=== PATIENT | female | born 1965 | race African-American/Black ===

== ENCOUNTER 2019-11-26 09:58 | Emergency (ER) | payer OTHER ==
[~2019-11-26] VITALS: Ht 162.6 cm; Wt 98.7 kg
[2019-11-26] MEDS ORDERED: DULO20CA30 PO (10:25)
[2019-11-26] MEDS ORDERED: MONT4GRA2 PO (10:25)
[2019-11-26] MEDS ORDERED: METO25 PO (10:25)
[2019-11-26] MEDS ORDERED: OMEP10 PO (10:25)
[2019-11-26] MEDS ORDERED: MECLIZINE HCL 25 MG TABLET PO ONE (11:45)
[2019-11-26] MEDS ORDERED: SODIUM CHLORIDE 0.9% 1,000 ML IV ONE (11:45)
[2019-11-26] MEDS ORDERED: SODIUM CHLORIDE 0.65% 44 ML NASAL SPRAY NASAL ONE (11:45)
[2019-11-26] MEDS ORDERED: VENL-67 PO (11:49)
[2019-11-26] MEDS ORDERED: DULO60CA44 PO (11:49)
[2019-11-26] MEDS ORDERED: MONT10TA21 PO (11:49)
[2019-11-26 12:14] LABS: ABG A-A DIFF O2 28.1 mmHg (10-20.0); ABG BASE EXCESS 0.9 mmol/L (-2.0-3.0); ABG CARBOXYHEMOGLOBIN 3.3 % (0.0-1.5); ABG HCO3 25.4 mmol/L (22.0-26.0); ABG METHEMOGLOBIN 0.1 % (0.0-1.5); ABG OXYGEN SATURATION 96.3 % (95.0-98.0); SOURCE, BLOOD GAS ARTERIAL; TEMPERATURE, FAHRENHEIT, BG 97.9 FAHREN (96.0-98.6)
[2019-11-26 12:15] LABS: ABG PCO2 38 mmHg (35-45); ABG PH 7.439 (7.35-7.450); SITE, BLOOD GAS RT RADIAL
[2019-11-26 12:16] LABS: ABG OXYGEN CONTENT 18.3 mL/dL (15.0-23.0); O2 DEVICE,BLOOD GAS ROOM AIR (ROOM AIR); PO2, ARTERIAL BG 79.4 mmHg (84.0-92.0)
[2019-11-26 13:03] LABS: BASOPHILS % (AUTO) 0.6 % (0.0-2.0); EOSINOPHILS % (AUTO) 0.4 % (1.0-6.0); HEMATOCRIT 41.7 % (36-46); HEMOGLOBIN 13.8 g/dL (12.0-16.0); LYMPHOCYTES # (AUTO) 1.9 K/uL (1.0-4.8); LYMPHOCYTES % (AUTO) 19.6 % (22.0-44.0); MEAN CORPUSCULAR HEMOGLOBIN 28.6 pg (26.0-34.0); MEAN CORPUSCULAR HGB CONC 33.1 G/dL (31.0-37.0); MEAN CORPUSCULAR VOLUME 86 fL (80-100); MONOCYTES # (AUTO) 0.6 K/uL (0.1-1.0); MONOCYTES % (AUTO) 5.8 % (2.0-9.0); NEUTROPHILS # (AUTO) 7.2 K/uL (1.8-7.7); NEUTROPHILS % (AUTO) 73.6 % (40.0-70.0); PLATELET COUNT (AUTO) 263 K/uL (150-450); RED BLOOD CELL COUNT(AUTO) 4.83 MIL/uL (4.00-5.20); RED CELL DISTRIBUTION WIDTH 13.8 % (11.5-14.5)
[2019-11-26 13:11] LABS: ANION GAP 4 mmol/L (8-16); CARBON DIOXIDE 28 mmol/L (22-29); CHLORIDE 106 mmol/L (98-107); CREATININE 0.98 mg/dL (0.60-1.30); GLUCOSE,RANDOM 93 mg/dL (70-110); POTASSIUM 4.1 mmol/L (3.5-5.1); SODIUM SERUM 138 mmol/L (136-145); UREA NITROGEN, BLOOD 12 mg/dL (7-18)
[2019-11-26 13:12] LABS: CALCIUM, TOTAL 8.7 mg/dL (8.8-10.5); GLOMERULAR FILTR. RATE CALC > 60 mL/min (>60)
[2019-11-26 13:17] LABS: PROTHROMBIN TIME 10.3 SEC (9.4-11.6)
[2019-11-26 13:37] LABS: ALANINE AMINOTRANSFERASE 15 U/L (12-78); ALBUMIN 3.4 g/dL (3.4-5.0); ALKALINE PHOSPHATASE 107 U/L (46-116); ASPARTATE AMINOTRANSFERASE 13 U/L (15-37); BILIRUBIN,TOTAL 0.6 mg/dL (0.1-1.0); CREATINE KINASE, TOTAL ONLY 101 U/L (26-192); LIPASE 108 U/L (73-393)
[2019-11-26 13:39] LABS: B-TYPE NATRIURETIC PEPTIDE 28 pg/mL (0-100)
[2019-11-26 13:45] VITALS: BP 118/86
== END 2019-11-26 14:26 | disposition home or self-care (01) ==
LOC: EMS 09:59
DX: R42 Dizziness and giddiness (principal); R53.81 Other malaise; R11.10 Vomiting, unspecified; J43.9 Emphysema, unspecified; I10 Essential (primary) hypertension; F17.210 Nicotine dependence, cigarettes, uncomplicated; Z79.899 Other long term (current) drug therapy; Z88.2 Allergy status to sulfonamides
CPT/HCPCS: 36600; 70450; 71045; 80053; 82550; 82803; 82805; 83690; 83880; 84484; 85025; 85610; 85730; 93005; 96360; 99285; 99406; J7030